=== PATIENT | male | born 1945 | race Caucasian/White ===

== ENCOUNTER 2018-11-07 09:48 | Inpatient (IN) | payer MEDICARE, OTHER ==
[~2018-11-07] VITALS: Ht 180.3 cm; Wt 81.6 kg
[2018-11-07] MEDS ORDERED: BAYER CHEWABLE81 MG PO (09:53)
[2018-11-07] MEDS ORDERED: LIPITOR40 MG PO (09:53)
[2018-11-07] MEDS ORDERED: THORAZINE50 MG PO (09:53)
[2018-11-07] MEDS ORDERED: FAMOTIDINE10 MG PO (09:54)
[2018-11-07] MEDS ORDERED: DEPAKOTE ER250 MG PO (09:54)
[2018-11-07] MEDS ORDERED: FERROUS SULFAT325 MG PO (09:54)
[2018-11-07] MEDS ORDERED: NOVOLOG100 UNIT/1 SC (09:55)
[2018-11-07] MEDS ORDERED: FLOMAX0.4 MG PO (09:55)
[2018-11-07] MEDS ORDERED: GLUCAGEN1 MG/VIAL SC (09:55)
[2018-11-07] MEDS ORDERED: INSTA-GLUCOSE31 GM PO (09:55)
[2018-11-07] MEDS ORDERED: NEURONTIN600 MG PO (09:56)
[2018-11-07] MEDS ORDERED: REMERON30 MG PO (09:56)
[2018-11-07] MEDS ORDERED: MELATONIN 3 MG1 TAB PO (09:56)
[2018-11-07] MEDS ORDERED: ISOSORBIDE MONO10 MG PO (09:56)
[2018-11-07] MEDS ORDERED: LANTUS INSULIN10 ML SC (09:56)
[2018-11-07] MEDS ORDERED: ULTRAM50 MG PO (09:57)
[2018-11-07] MEDS ORDERED: VITAMIN D31000 UNIT PO (09:57)
[2018-11-07 10:00] VITALS: BP 91/52
[2018-11-07 10:29] LABS: BASOPHILS 0.1 % (0-2); EOSINOPHILS 1.5 % (0-7); HEMATOCRIT 30.4 % (42.0-54.0); HEMOGLOBIN 9.4 g/dL (13.5-17.5); LYMPHOCYTES 16.3 % (15-50); MCH 28.1 pg (26.0-34.0); MCHC 30.9 g/dL (31.0-37.0); MEAN PLATELET VOLUME 9.3 fL (7.4-10.4); MONOCYTES 5.7 % (2-11); NEUTROPHILS 75.4 % (40-80); RBC 3.34 10x6/uL (4.20-6.10); RDW 14.9 % (11.5-14.5); WBC 12.6 10x3/uL (4.8-10.8)
[2018-11-07 10:34] LABS: PLATELET COUNT 360 10x3/uL (130-400)
[2018-11-07 10:37] LABS: ALBUMIN 2.7 g/dL (3.4-5.0); ALKALINE PHOSPHATASE 93 U/L (46-116); ALT (SGPT) 7 U/L (10-68); BILIRUBIN - TOTAL 0.19 mg/dL (0.2-1.3); CALC OSMOLALITY 287 mosm/kg (275-300); CALCIUM 8.3 mg/dL (8.5-10.1); CARBON DIOXIDE 31.6 mmol/L (21.0-32.0); CHLORIDE - SERUM 101 mmol/L (98-107); CREATININE - SERUM 3.7 mg/dL (0.6-1.3); POTASSIUM - SERUM 5.4 mmol/L (3.5-5.1); SODIUM 137 mmol/L (136-145); UREA NITROGEN 51 mg/dL (7-18); eGFR NON AFRICAN AMERICAN 17 mL/min (90-120)
[2018-11-07 10:39] LABS: GLUCOSE 102 mg/dL (74-106)
[2018-11-07 10:49] LABS: CREATINE KINASE 33 UL (21-232); PRO BNP 411 pg/mL (0-125); TROPONIN-I < 0.017 ng/mL (0.000-0.060)
--- NOTE | 2018-11-07 11:20 | NUR ---
PER EDP DOWNEN, REPEAT ABG ORDERED. RT AT BEDSIDE AT THIS TIME.
[2018-11-07 13:27] VITALS: BMI 25.1
--- NOTE | 2018-11-07 13:29 | MORECARE ---
CASE MANAGEMENT DISCHARGE SUMMARY PATIENT: ARIANNA JUAN UNIT: [id number] ADM DATE: 11/07/18 AGE: 72 : 46 SEX: M ROOM/BED: D.1208 AUTHOR: NANCY CRUMP PHYSICIAN: REFERRING PHYSICIAN: PHILOMENA PERALES MD DATE OF SERVICE: 11/07/18 Discharge Plan Patient Name: ARIANNA JUAN [facility] [facility] 1945 Planned Disposition: Group Home Facility Anticipated Discharge Date: 11/10/18 Discharge Date: Expected LOS: 3 Initial Reviewer: [email or web address] Initial Review Date: 11/07/2018 Generated: 11/07/18 2:28 pm DCPIA - Discharge Planning Initial Assessment Updated by [email or web address]: Nisha Wheatley on 11/07/18 1:25 pm * Is the patient Alert and Oriented? No * How many steps to enter\exit or inside your home? None * PCP Dr. Perales * Pharmacy [facility] * Preadmission Environment Nursing Home Jail * Facility Name [facility] ([facility]ally [facility]) * List name and contact numbers for known caregivers / representatives who currently or will assist patient after discharge: Bon Juan Andi ZUNIGA/SON - [phone] Javi Nguyen - daughter - [phone] * Verbal permission to speak to the caregivers and representatives has been obtained from the patient. N/A * Additional services required to return to the preadmission environment? No * Can the patient safely return to the preadmission environment? Yes * Has this patient been hospitalized within the prior 30 days at any hospital? No External Providers External Provider: [facility] Next Contact Date: Service Request Date: Service Type: Resolution: Reviewer: Comments: Patient Name: ARIANNA JUAN Page [phone] at 1329 All edits/amendments must be made on the electronic document DICTATION DATE: 11/07/18 1328 DITCHER OPERATOR: FARZANEH 11/07/18 1328 RPT#: [id number] DC DATE: STATUS: ADM IN [facility] [address] [facility] [place] [address] END OF REPORT
--- NOTE | 2018-11-07 13:34 | NUR ---
RECEIVED PT FROM ER. PT ADMITTED WITH PNEUMONIA, COPD, RENAL FAILURE. NO C/O PAIN. NO S/S OF ACUTE DISTRESS NOTED. IV TO RIGHT HAND, FINGER, NS INFUSING @ 75ML/HR. PT INCONTINENT OF BOWEL AND BLADDER. NKDA. PT ON 12L O2, HIGHFLOW NC. PT DENIES ANYTHING FURTHER AT THIS TIME. CALL LIGHT IN REACH. WILL CONTINUE TO MONITOR.
[2018-11-07 13:38] VITALS: BP 109/47
--- NOTE | 2018-11-07 14:12 | MORECARE ---
CASE MANAGEMENT DISCHARGE SUMMARY PATIENT: ARIANNA CANSECO UNIT: [id number] ADM DATE: 11/07/18 AGE: 72 : 46 SEX: M ROOM/BED: D.1208 AUTHOR: THERONDOC PHYSICIAN: REFERRING PHYSICIAN: PHILOMENA PERALES MD DATE OF SERVICE: 11/07/18 Discharge Plan Patient Name: ARIANNA CANSECO Facility: [facility]:[place] : 1945 Planned Disposition: Residential Facility Anticipated Discharge Date: 11/10/18 Discharge Date: Expected LOS: 3 Initial Reviewer: [email or web address] Initial Review Date: 11/07/2018 Generated: 11/07/18 3:12 pm DCP- Discharge Planning Updated by [email or web address]: Nisha Wheatley on 11/07/18 1:[address] Patient Name: ARIANNA CANSECO Admission Status: ER Accout number: [id number] Admission Date: 11-07-2018 : 1945 Admission Diagnosis: Attending: PHILOMENA PERALES Current LOS: 1 Anticipated DC Date: 11-10-2018 Planned Disposition: Residential Facility - [facility] Primary Insurance: MEDICARE A & B Discharge Planning Comments: CM met with patient to complete initial dc planning assessment. CM was unable to assess and educated patient on the CM role due to patient being on bipap and asleep. CM tried to contact both contacts listed on facesheet and received voicemails. Patient is a resident at [facility] (formally [facility] He will return to the facility at time of discharge. will continue to follow and will assist as needed with dc plans/needs. DCPIA - Discharge Planning Initial Assessment Updated by [id number]: Nisha Wheatley on 11/07/18 1:25 pm * Is the patient Alert and Oriented? No * How many steps to enter\exit or inside your home? None * PCP Dr. Perales * [facility]acy [facility] * Preadmission Environment C 13 Catapult Operator Long Term * Facility Name [facility] ([facility]) * List name and contact numbers for known caregivers / representatives who currently or will assist patient after discharge: BonRan ZUNIGA/YURIY - [phone] Javi Nguyen - daughter - [phone] * Verbal permission to speak to the caregivers and representatives has been obtained from the patient. N/A * Additional services required to return to the preadmission environment? No * Can the patient safely return to the preadmission environment? Yes * Has this patient been hospitalized within the prior 30 days at any hospital? No Last DP export: 11/07/18 12:28 p Patient Name: ARIANNA CANSECO Page [phone] at 1412 All edits/amendments must be made on the electronic document DICTATION DATE: 11/07/181411 SOCIAL SERVICES COORDINATOR: FARZANEH 11/07/181411 RPT#: [id number] DC DATE: STATUS: ADM IN [facility] [address] [place] [address] END OF REPORT
[2018-11-07 16:13] VITALS: BP 101/51
--- NOTE | 2018-11-07 18:44 | NUR ---
PT RESTING IN BED, EYES OPEN. NO C/O PAIN. NO S/S OF ACUTE DISTRESS NOTED. PT DENIES ANYTHING FURTHER AT THIS TIME. CALL LIGHT IN REACH. WILL CONTINUE TO MONITOR.
--- NOTE | 2018-11-07 19:49 | NUR ---
PATIENT RESTING IN BED WITH EYES OPEN. WATCHING TV. NO SIGNS OF DISTRESS. DENIES HAVING ANY PAIN OR NEEDS AT THIS TIME. BED IN LOWEST POSITION. SIDE RAILS UP. CALL LIGHT IN REACH. CONTINUE PLAN OF CARE.
[2018-11-07 20:00] VITALS: BP 156/84
[2018-11-08] VITALS (7 sets, daily range): BP systolic 120–160; BP diastolic 66–80; Ht 180.3 cm; Wt 81.6 kg
--- NOTE | 2018-11-08 04:00 | NUR ---
PATIENT RESTING IN BED WITH EYES CLOSED. NO SIGNS OF DISTRESS. BED IN LOWEST POSITION. SIDE RAILS UP. CALL LIGHT IN REACH. CONTINUE PLAN OF CARE.
[2018-11-08 07:50] LABS: CALC OSMOLALITY 298 mosm/kg (275-300); CALCIUM 7.6 mg/dL (8.5-10.1); CARBON DIOXIDE 29.7 mmol/L (21.0-32.0); CHLORIDE - SERUM 99 mmol/L (98-107); CREATININE - SERUM 2.9 mg/dL (0.6-1.3); MAGNESIUM - SERUM 2.2 mg/dL (1.8-2.4); POTASSIUM - SERUM 5.7 mmol/L (3.5-5.1); SODIUM 137 mmol/L (136-145); TROPONIN-I < 0.017 ng/mL (0.000-0.060); UREA NITROGEN 54 mg/dL (7-18); eGFR NON AFRICAN AMERICAN 23 mL/min (90-120)
[2018-11-08 07:52] LABS: GLUCOSE 276 mg/dL (74-106)
[2018-11-08 08:12] LABS: HEMATOCRIT 25.8 % (42.0-54.0); HEMOGLOBIN 8.2 g/dL (13.5-17.5); MCH 28.4 pg (26.0-34.0); MCHC 31.8 g/dL (31.0-37.0); MCV 89.3 fL (80.0-100.0); PLATELET COUNT 315 10x3/uL (130-400); RBC 2.89 10x6/uL (4.20-6.10); RDW 14.4 % (11.5-14.5); WBC 9.5 10x3/uL (4.8-10.8)
[2018-11-08 09:05] LABS: ANISOCYTOSIS OCC; LYMPHOCYTES 11 % (15-50); MONOCYTES 6 % (2-11); NEUTROPHILS 81 % (40-80); PLATELET ESTIMATE NORMAL
--- NOTE | 2018-11-08 09:30 | NUR ---
PT RESTING IN BED. PT HAD SPILT COFFEE ALL OVER HIS BED. ASSISTED PT WITH BEDBATH AND COMPLETE LINEN CHANGE. SHIFT ASSESSMENT PERFORMED. AM MEDS GIVEN ORDERED. PT TOLERATED WELL. SCD SLEEVES ON PT AT THIS TIME CALL LIGHT IN REACH. DENIES PAIN AT THIS TIME, DENIES ANY OTHER NEEDS AT THIS TIME
--- NOTE | 2018-11-08 13:07 | NUR ---
LEFT MESSAGE AT OFFICE THAT PT BLOOD CULTURE CAME BACK GRAM POSITIVE COCCI.
[2018-11-08 16:10] LABS: CREATININE - URINE 50.6 mg/dL (30-125); PRO/CRE RATIO URINE 1.2 mg/g; PROTEIN - URINE 62.9 mg/dL (0.0-11.9)
--- NOTE | 2018-11-08 19:30 | NUR ---
LYING IN BED. SOME PARANOIA NOTED. EASILY STARTLED WHEN STAFF APPROACHES PT. CONFUSED TO TIME AND SITUATION. RESP IRREG. BBS COARSE IN BLL. O2 @ 10L/HFC. MOUTH BREATHING MOST OF TIME. TALKATIVE WITH STAFF. DENIES PAIN. INCONT OF B/B. COMPLETE LINEN CHANGE DONE AT THIS TIME DUE TO URINARY INCONTINENCE. 1+ EDEMA TO BLE. SCDS IN USE BILAT. BRUISES NOTED TO BUE. NS @ 75 ML/HR INFUSING IN RT WRIST WITHOUT DIFF. SR ELEVATED X2. CL IN REACH. NO DISTRESS.
--- NOTE | 2018-11-09 00:20 | NUR ---
RESTING QUIETLY WITH EYES CLOSED. CPAP IN USE. CL IN REACH. NO DISTRESS.
[2018-11-09 03:58] VITALS: BP 132/74
[2018-11-09 05:53] LABS: BASOPHILS 0 % (0-2); EOSINOPHILS 0 % (0-7); HEMATOCRIT 25.1 % (42.0-54.0); HEMOGLOBIN 7.8 g/dL (13.5-17.5); IMMATURE GRANULOCYTES 0.5 % (0-5); LYMPHOCYTES 4.6 % (15-50); MCH 27.8 pg (26.0-34.0); MCHC 31.1 g/dL (31.0-37.0); MCV 89.3 fL (80.0-100.0); MEAN PLATELET VOLUME 9.2 fL (7.4-10.4); MONOCYTES 3.2 % (2-11); NEUTROPHILS 91.7 % (40-80); PLATELET COUNT 304 10x3/uL (130-400); RBC 2.81 10x6/uL (4.20-6.10); RDW 14.4 % (11.5-14.5); WBC 11.4 10x3/uL (4.8-10.8)
[2018-11-09 06:11] LABS: CALCIUM 7.6 mg/dL (8.5-10.1); CARBON DIOXIDE 30.1 mmol/L (21.0-32.0); CREATININE - SERUM 2.4 mg/dL (0.6-1.3)
[2018-11-09 06:13] LABS: POTASSIUM - SERUM 6.1 mmol/L (3.5-5.1)
[2018-11-09 07:30] VITALS: BP 128/66
--- NOTE | 2018-11-09 11:25 | NUR ---
RECIEVED 1 UNIT PRBC FROM LAB. VERIFIED WITH NGOC MARS AT BEDSIDE. VITALS WNL.
--- NOTE | 2018-11-09 11:55 | NUR ---
15 MIN POST VITALS WNL. WILL CONT TO MONITOR
--- NOTE | 2018-11-09 14:01 | NUR ---
1 U PRBC OBTAINED FROM LAB. VERIFIED WITH NGOC MARS AT PT BEDSIDE. VSS AND WNL. CURRENTLY TRANSFUSING WITHOUT COMPLICATIONS
--- NOTE | 2018-11-09 14:15 | NUR ---
POST 15MIN VITALS WNL. WILL CONT TO MONITOR
--- NOTE | 2018-11-09 21:15 | NUR ---
AWAKE,ALERT.NO COMPLAINTS VOICED AT PRESENT.RESP UNLABORED. O2 @ 10L PER HIGHFLOW.NO DISTRESS NOTED.CL IN REACH. SR UP X 2
[2018-11-09 21:49] VITALS: BP 138/74
[2018-11-10 00:15] VITALS: BP 153/77
--- NOTE | 2018-11-10 02:14 | NUR ---
I have reviewed this patient and I concur with the Shift Assessment completed by the Licensed Practical Nurse today this shift.
[2018-11-10 05:20] VITALS: BP 139/103
[2018-11-10 07:19] LABS: ANION GAP 12.1 mmol/L (8-16); BASOPHILS 0 % (0-2); CALCIUM 7.8 mg/dL (8.5-10.1); CARBON DIOXIDE 29.3 mmol/L (21.0-32.0); CREATININE - SERUM 2.3 mg/dL (0.6-1.3); EOSINOPHILS 0 % (0-7); IMMATURE GRANULOCYTES 1.6 % (0-5); LYMPHOCYTES 5.8 % (15-50); MCHC 31.5 g/dL (31.0-37.0); MCV 89.1 fL (80.0-100.0); MEAN PLATELET VOLUME 9.2 fL (7.4-10.4); MONOCYTES 4.5 % (2-11); NEUTROPHILS 88.1 % (40-80); PLATELET COUNT 275 10x3/uL (130-400); POTASSIUM - SERUM 5.4 mmol/L (3.5-5.1); RDW 14.5 % (11.5-14.5); WBC 9.6 10x3/uL (4.8-10.8)
[2018-11-10 07:21] LABS: HEMATOCRIT 30.2 % (42.0-54.0); HEMOGLOBIN 9.5 g/dL (13.5-17.5); RBC 3.39 10x6/uL (4.20-6.10)
[2018-11-10 08:02] VITALS: BP 139/73
--- NOTE | 2018-11-10 08:30 | NUR ---
PT RESTING IN BED, NOTICED THAT PTS BED WAS SATURATED. ASSISTED PT WITH BED BATH AND COMPLETE LINEN CHANGE. AM MEDS GIVEN ORDERED. SHIFT ASSESSMENET PERFORMED PT DENIES PAIN AT THIS TIME, DENIES ANY OTHER NEEDS AT THIS TIME, WILL CONT TO FOLLOW PLAN OF CARE
[2018-11-10 08:43] LABS: % SATURATION 26 % (15-55); IRON 60 ug/dl (35-150); TOTAL IRON BIND CAPACITY 226 ug/dl (260-445); UNSAT IRON BIND CAPACITY 166 ug/dl (150-375)
--- NOTE | 2018-11-10 13:20 | NUR ---
Nutrition Follow Up: Pt was asleep and no family present at the time of RD visit. Interview deferred at this time. Diet: Renal ADA [facility] Soft PO Intake: 100% meal avg BM: 11/08/18 Labs reviewed - Glucose, BUN, Cr, K+ elevated Meds noted including Solu Medrol Rec continue current renal ADA diet with INTERNATIONAL TRAVEL CONSULTANT recs for consistencies. RD following.
[2018-11-10 20:30] VITALS: BP 141/76
[2018-11-11 00:35] VITALS: BP 151/73
[2018-11-11 05:46] VITALS: BP 158/83
[2018-11-11 06:37] LABS: BASOPHILS 0 % (0-2); EOSINOPHILS 0 % (0-7); HEMATOCRIT 32.7 % (42.0-54.0); HEMOGLOBIN 10.3 g/dL (13.5-17.5); IMMATURE GRANULOCYTES 1.7 % (0-5); MCH 28.4 pg (26.0-34.0); MCHC 31.5 g/dL (31.0-37.0); MCV 90.1 fL (80.0-100.0); MEAN PLATELET VOLUME 9.4 fL (7.4-10.4); MONOCYTES 5.4 % (2-11); NEUTROPHILS 84.9 % (40-80); PLATELET COUNT 274 10x3/uL (130-400); RBC 3.63 10x6/uL (4.20-6.10); RDW 14.4 % (11.5-14.5); WBC 8.3 10x3/uL (4.8-10.8)
[2018-11-11 07:14] LABS: ANION GAP 9.7 mmol/L (8-16); CALCIUM 8.1 mg/dL (8.5-10.1); CARBON DIOXIDE 32.3 mmol/L (21.0-32.0); CREATININE - SERUM 2.2 mg/dL (0.6-1.3)
--- NOTE | 2018-11-11 08:00 | NUR ---
AWAKE AND ALERT. ORIENTED X3. NO C/O THIS AM. LUNGS ARE CLEAR BILATERALLY WITH FAINT CRACKLES IN BILATERAL LOWER LOBES. NO COUGH NOTED. SKIN IS INTACT WITHOUT REDNESS. SCD'S IN PLACE. IV TO RIGHT WRIST IS PATENT WITHOUT REDNESS AT INSERTION SITE. VPODED CLEAR YELLOW URINE IN URINAL. DENIES NEEDS.
[2018-11-11 08:17] LABS: FOLATE (FOLIC ACID) - SERUM 4.3 ng/mL (>3.0)
--- NOTE | 2018-11-11 09:00 | NUR ---
ATE ALL OF FIRST BREAKFAST TRAY AND REQUESTED ANOTHER. OBTAINED FOR PATIENT.
[2018-11-11 09:07] VITALS: BP 174/86
--- NOTE | 2018-11-11 12:30 | NUR ---
LUNCH SERVED IN ROOM. ATE ALL OF MEAL EXCEPT RICE. DENIES NEEDS.
[2018-11-11 13:50] VITALS: BP 176/86
--- NOTE | 2018-11-11 14:00 | NUR ---
HAD LARGE MEDIUM BROWN LOOSE STOOL USED BEDPAN. SKIN CARE PER STAFF. REPOSITIONED IN BED FOR COMFORT.
--- NOTE | 2018-11-11 15:00 | NUR ---
ARNOLDO NOTIFIED OF DR. PHILLIPS'S OK FOR DISCHARGE HOME FROM HIS STANDPOINT.
[2018-11-11 17:35] VITALS: BP 131/71
[2018-11-11 19:30] VITALS: BP 163/73
--- NOTE | 2018-11-11 20:06 | NUR ---
PATIENT RESTING IN BED WITH EYES CLOSED AND NO S/S OF DISTRESS. BED IN LOWEST POSITION AND CALL LIGHT WITHIN REACH. WILL CONTINUE TO MONITOR.
[2018-11-12] VITALS: BP 145/74
[2018-11-12 04:00] VITALS: BP 132/67
[2018-11-12 06:41] LABS: BASOPHILS 0 % (0-2); EOSINOPHILS 1.7 % (0-7); HEMATOCRIT 33.3 % (42.0-54.0); HEMOGLOBIN 10.7 g/dL (13.5-17.5); IMMATURE GRANULOCYTES 1.4 % (0-5); LYMPHOCYTES 27.7 % (15-50); MCH 28.5 pg (26.0-34.0); MCHC 32.1 g/dL (31.0-37.0); MCV 88.8 fL (80.0-100.0); MEAN PLATELET VOLUME 9.3 fL (7.4-10.4); MONOCYTES 9.3 % (2-11); NEUTROPHILS 59.9 % (40-80); PLATELET COUNT 258 10x3/uL (130-400); RBC 3.75 10x6/uL (4.20-6.10); RDW 14.3 % (11.5-14.5); WBC 8.6 10x3/uL (4.8-10.8)
[2018-11-12 07:06] LABS: ANION GAP 7.2 mmol/L (8-16); CALCIUM 8.1 mg/dL (8.5-10.1); CARBON DIOXIDE 34.1 mmol/L (21.0-32.0); CREATININE - SERUM 2.1 mg/dL (0.6-1.3); POTASSIUM - SERUM 4.3 mmol/L (3.5-5.1)
--- NOTE | 2018-11-12 07:50 | NUR ---
AWAKE AND ALERT. ORIENTED X3. NO C/O AT THIS TIME. LUNGS ARE CLEAR BILATERALLY, NO COUGH NOTED. O2 SITE AT 98% ON 5L HIGH FLOW, DECREASED TO 4L WILL MONITOR. SL TO RIGHT WRIST IS PATENT WITHOUT REDNESS AT INSERTION SITE. ATE ALL OF BREAKFAST. DENIES NEEDS.
[2018-11-12 08:00] VITALS: BP 144/91
--- NOTE | 2018-11-12 09:30 | NUR ---
REQUESTED AND GIVEN SECOND BREAKFAST. DENIES NEEDS.
[2018-11-12 12:00] VITALS: BP 155/89
[2018-11-12 16:22] VITALS: BP 109/70
--- NOTE | 2018-11-12 18:09 | NUR ---
ATE ALL OF SUPPER. NO C/O AT THIS TIME. DNEIES NEEDS. NO CHANGES NOTED.
--- NOTE | 2018-11-12 19:35 | NUR ---
PATIENT RESTING IN BED WITH EYES CLOSED AND NO S/S OF DISTRESS. BED IN LOWEST POSITION AND CALL LIGHT WITHIN REACH. WILL CONTINUE TO MONITOR.
[2018-11-12 19:38] VITALS: BP 128/66
[2018-11-13 00:43] VITALS: BP 130/72
[2018-11-13 04:24] VITALS: BP 132/63
[2018-11-13 06:57] LABS: BASOPHILS 0 % (0-2); EOSINOPHILS 0.8 % (0-7); HEMATOCRIT 35.2 % (42.0-54.0); HEMOGLOBIN 11.4 g/dL (13.5-17.5); IMMATURE GRANULOCYTES 1.3 % (0-5); LYMPHOCYTES 13.1 % (15-50); MCH 28.6 pg (26.0-34.0); MCHC 32.4 g/dL (31.0-37.0); MCV 88.4 fL (80.0-100.0); MEAN PLATELET VOLUME 9.5 fL (7.4-10.4); MONOCYTES 7.3 % (2-11); NEUTROPHILS 77.5 % (40-80); PLATELET COUNT 273 10x3/uL (130-400); RBC 3.98 10x6/uL (4.20-6.10); RDW 14.2 % (11.5-14.5)
[2018-11-13 07:05] LABS: ANION GAP 10.1 mmol/L (8-16); CALCIUM 8.3 mg/dL (8.5-10.1); CARBON DIOXIDE 32.5 mmol/L (21.0-32.0); CREATININE - SERUM 2.2 mg/dL (0.6-1.3); POTASSIUM - SERUM 4.6 mmol/L (3.5-5.1)
[2018-11-13 07:06] LABS: WBC 12.4 10x3/uL (4.8-10.8)
--- NOTE | 2018-11-13 08:00 | NUR ---
LYING IN BED WITH EYES CLOSED. AROUSES EASILY, DENIES ANY NEEDS OR PAIN AT THIS TIME. WILL CONTINUE TO MONITOR. O2 ON AT 4 L/NC.
[2018-11-13 09:07] VITALS: BP 141/65
[2018-11-13 09:09] LABS: IMMUNOGLOBULIN E 109 IU/mL (6-495)
[2018-11-13] MEDS ORDERED: VELTASSA8.4 GM PO (10:48)
[2018-11-13] MEDS ORDERED: IPRAT-ALBUT 0.5-3 ML UPD (10:48)
[2018-11-13] MEDS ORDERED: PREDNISONE20 MG PO (10:51)
--- NOTE | 2018-11-13 11:21 | MORECARE ---
CASE MANAGEMENT DISCHARGE SUMMARY PATIENT: ARIANNA JUAN UNIT: [id number] ADM DATE: 11/07/18 AGE: 72 : 46 SEX: M ROOM/BED: D.1208 AUTHOR: THERONDOC PHYSICIAN: REFERRING PHYSICIAN: PHILOMENA PERALES MD DATE OF SERVICE: 11/13/18 Discharge Plan Patient Name: ARIANNA JUAN Facility: [facility]:[place] : 1945 Planned Disposition: Residential Facility Anticipated Discharge Date: 11/10/18 Discharge Date: Expected LOS: 3 Initial Reviewer: [email or web address] Initial Review Date: 11/07/2018 Generated: 11/13/18 12:21 pm Comments DCP- Discharge Planning Updated by [id number]: Maria Isabel Sheets on 11/13/18 10:[address] 0945 PRIMARY NURSE ADVISED PATIENT IS FOR [facility]CHARGE BACK TO [facility] TC TO [facility] AND SPOKE WITH TI[facility]O. FAXED CLINICAL UPDATE. AWAIT CB REGARDING TRANSPORTATION AND BED STATUS. DCP- Discharge Planning Updated by [email or web address]: Nisha Wheatley on 11/07/18 1:[address] Patient Name: ARIANNA JUAN Admission Status: ER Accout number: [id number] Admission Date: 11-07-2018 : 1945 Admission Diagnosis: Attending: PHILOMENA PERALES Current LOS: 1 Anticipated DC Date: 11-10-2018 Planned Disposition: Residential Facility - [facility] Primary Insurance: MEDICARE A & B Discharge Planning Comments: CM met with patient to complete initial dc planning assessment. CM was unable to assess and educated patient on the CM role due to patient being on bipap and asleep. CM tried to contact both contacts listed on facesheet and received voicemails. Patient is a resident at [facility] (formally [facility]). He will return to the facility at time of discharge. will continue to follow and will assist as needed with dc plans/needs. DCPIA - Discharge Planning Initial Assessment Updated by [id number]: Nisha Wheatley on 11/07/18 1:25 pm * Is the patient Alert and Oriented? No * How many steps to enter\exit or inside your home? None * PCP Dr. Perales * Pharmacy [facility] * Preadmission Environment Workforce Development Specialist Snf * Facility Name [facility] (formally [facility]) * List name and contact numbers for known caregivers / representatives who currently or will assist patient after discharge: Bon Juan - POA/SON - [phone] Javi Nguyen - daughter - [phone] * Verbal permission to speak to the caregivers and representatives has been obtained from the patient. N/A * Additional services required to return to the preadmission environment? No * Can the patient safely return to the preadmission environment? Yes * Has this patient been hospitalized within the prior 30 days at any hospital? No Coverage Notice Reviewer: [email or web address] Andi Pineda Notice Issued Date-Time: 11/10/2018 10:52 Notice Type: IM Discharge Notice Notice Delivered To: Patient Relationship to Patient: Bonderite Operator Name: Delivery Method: HAND - Hand Delivered Alexus Days: Prior Verbal Notification: Recipient Understood Notice: Yes Recipient Signature: Med Rec Note Co-signed by Attending: Coverage Notice Comment: Last DP export: 11/07/18 1:12 p Patient Name: ARIANNA JUAN Page [phone] at 1121 All edits/amendments must be made on the electronic document DICTATION DATE: 11/13/18 112 CLINICAL EDUCATION COORDINATOR: FARZANEH 11/13/18 1120 RPT#: [id number] DC DATE: STATUS: ADM IN [facility] [address] [place] [address] END OF REPORT
--- NOTE | 2018-11-13 12:05 | MORECARE ---
CASE MANAGEMENT DISCHARGE SUMMARY PATIENT: ARIANNA JUAN UNIT: [id number] ADM DATE: 11/07/18 AGE: 72 : 46 SEX: M ROOM/BED: D.1208 AUTHOR: THERONDOC PHYSICIAN: REFERRING PHYSICIAN: PHILOMENA PERALES MD DATE OF SERVICE: 11/13/18 Discharge Plan Patient Name: ARIANNA JUAN Facility: [facility]:[place] : 1945 Planned Disposition: Custodial Facility Anticipated Discharge Date: 11/10/18 Discharge Date: Expected LOS: 3 Initial Reviewer: [email or web address] Initial Review Date: 11/07/2018 Generated: 11/13/18 1:05 pm Comments DCP- Discharge Planning Updated by [id number]: Maria Isabel Sheets on 11/13/18 10:[address] 0945 PRIMARY NURSE ADVISED PATIENT IS FOR [facility] TC TO [facility] AND SPOKE WITH TIAGO. FAXED CLINICAL UPDATE. AWAIT CB REGARDING TRANSPORTATION AND BED STATUS. DCP- Discharge Planning Updated by [email or web address]: Nisha Wheatley on 11/07/18 1:[address] Patient Name: ARIANNA JUAN Admission Status: ER Accout number: [id number] Admission Date: 11-07-2018 : 1945 Admission Diagnosis: Attending: PHILOMENA PERALES Current LOS: 1 Anticipated DC Date: 11-10-2018 Planned Disposition: Custodial Facility - [facility] Primary Insurance: MEDICARE A & B Discharge Planning Comments: CM met with patient to complete initial dc planning assessment. CM was unable to assess and educated patient on the CM role due to patient being on bipap and asleep. CM tried to contact both contacts listed on facesheet and received voicemails. Patient is a resident at [facility] (formally [facility]). He will return to the facility at time of discharge. will continue to follow and will assist as needed with dc plans/needs. DCPIA - Discharge Planning Initial Assessment Updated by [email or web address]: Nisha Wheatley on 11/07/18 1:25 pm * Is the patient Alert and Oriented? No * How many steps to enter\exit or inside your home? None * PCP Dr. Perales * Pharmacy [facility] * Preadmission Environment Group Home Skilled Nursing * Facility Name [facility] ([facility]ally [facility]) * List name and contact numbers for known caregivers / representatives who currently or will assist patient after discharge: Bon Juan - YUDITHA/SON - [phone] Javi Nguyen - daughter - [phone] * Verbal permission to speak to the caregivers and representatives has been obtained from the patient. N/A * Additional services required to return to the preadmission environment? No * Can the patient safely return to the preadmission environment? Yes * Has this patient been hospitalized within the prior 30 days at any hospital? No Coverage Notice Reviewer: [email or web address] Andi Pineda Notice Issued Date-Time: 11/10/2018 10:52 Notice Type: IM Discharge Notice Notice Delivered To: Patient Relationship to Patient: Tool Coordinator Name: Delivery Method: HAND - Hand Delivered Alexus Days: Prior Verbal Notification: Recipient Understood Notice: Yes Recipient Signature: Med Rec Note Co-signed by Attending: Coverage Notice Comment: Last DP export: 11/13/18 10:21 a Patient Name: ARIANNA JUAN Page [phone] at 1205 All edits/amendments must be made on the electronic document DICTATION DATE: 11/13/18 1204 GAS ENGINE PERFORMANCE ENGINEER: FARZANEH 11/13/18 1204 RPT#: [id number] DC DATE: STATUS: ADM IN [facility] [address] [place] [address] END OF REPORT
--- NOTE | 2018-11-13 12:13 | MORECARE ---
CASE MANAGEMENT DISCHARGE SUMMARY PATIENT: ARIANNA JUAN UNIT: [id number] ADM DATE: 11/07/18 AGE: 72 : 46 SEX: M ROOM/BED: D.1208 AUTHOR: NANCY CRUMP PHYSICIAN: REFERRING PHYSICIAN: PHILOMENA PERALES MD DATE OF SERVICE: 11/13/18 Discharge Plan Patient Name: ARIANNA JUAN Facility: [facility]:[place] : 1945 Planned Disposition: Nursing Home Facility Anticipated Discharge Date: 11/10/18 Discharge Date: Expected LOS: 3 Initial Reviewer: [email or web address] Initial Review Date: 11/07/2018 Generated: 11/13/18 1:13 pm Comments DCP- Discharge Planning Updated by [email or web address]: Maria Isabel Sheets on 11/13/18 11:[address] 1130 CM RECEIVED TELEPHONE CALL FROM [place] WITH [facility]. TRANSPORTATION WILL BE PROVIDED AT 1200. THE PATIENT IS DETENTION IN A [place] CONTRACTED BED. DISCHARGE IMM EXPLAINED. THE PATIENT SEEMED TO UNDERSTAND. HOWEVER HE SIGNED "OLYA". HE SAID "THAT IS FINE". HE REQUESTED ASSISTANCE TO GET DRESSED. CM ADVISED HIS PRIMARY NURSE, [place] AND THE BASIN OPERATOR. DCP- Discharge Planning Updated by [email or web address]: Maria Isabel Sheets on 11/13/18 10:[address] 0945 PRIMARY NURSE ADVISED PATIENT IS FOR DISCHARGE BACK TO [facility]. TC TO [facility] AND SPOKE WITH TIAGO. FAXED CLINICAL UPDATE. AWAIT CB REGARDING TRANSPORTATION AND BED STATUS. DCP- Discharge Planning Updated by [email or web address]: Nisha Wheatley on 11/07/18 1:[address] Patient Name: ARIANNA JUAN Admission Status: ER Accout number: [id number] Admission Date: 11-07-2018 : 1945 Admission Diagnosis: Attending: PHILOMENA PERALES Current LOS: 1 Anticipated DC Date: 11-10-2018 Planned Disposition: Nursing Home Facility - [facility] Primary Insurance: MEDICARE A & B Discharge Planning Comments: CM met with patient to complete initial dc planning assessment. CM was unable to assess and educated patient on the CM role due to patient being on bipap and asleep. CM tried to contact both contacts listed on facesheet and received voicemails. Patient is a resident at [facility] ([facility] He will return to the facility at time of discharge. will continue to follow and will assist as needed with dc plans/needs. DCPIA - Discharge Planning Initial Assessment Updated by [id number]: Nisha Wheatley on 11/07/18 1:25 pm * Is the patient Alert and Oriented? No * How many steps to enter\\exit or inside your home? None * PCP Dr. Perales * Pharmacy [facility] * Preadmission Environment Director Of Cardiology Long Term * Facility Name [facility] * List name and contact numbers for known caregivers / representatives who currently or will assist patient after discharge: Bon Juan Andi ZUNIGA/SON - [phone] Javi Nguyen - daughter - [phone] * Verbal permission to speak to the caregivers and representatives has been obtained from the patient. N/A * Additional services required to return to the preadmission environment? No * Can the patient safely return to the preadmission environment? Yes * Has this patient been hospitalized within the prior 30 days at any hospital? No Coverage Notice Reviewer: [email or web address] - Sofia Pineda Notice Issued Date-Time: 11/10/2018 10:52 Notice Type: IM Discharge Notice Notice Delivered To: Patient Relationship to Patient: Nuclear Medicine Tech Name: Delivery Method: HAND - Hand Delivered Alexus Days: Prior Verbal Notification: Recipient Understood Notice: Yes Recipient Signature: Med Rec Note Co-signed by Attending: Coverage Notice Comment: Reviewer: [email or web address] - Maria Isabel Sheets Notice Issued Date-Time: 11/13/2018 11:48 Notice Type: IM Discharge Notice Notice Delivered To: Patient Relationship to Patient: Self Nuclear Medicine Tech Name: Delivery Method: HAND - Hand Delivered Alexus Days: Prior Verbal Notification: Recipient Understood Notice: Yes Recipient Signature: Yes Med Rec Note Co-signed by Attending: Coverage Notice Comment: CM EXPLAINED DISCHARGE IMM. PATIENT SAID HE UNDERSTOOD. HOWEVER SIGNED THE COPY WITH JUST OLYA. D/C IMM SERVED. COPY TO THE PATIENT AND SIGNED COPY TO THE CHART. Last DP export: 11/13/18 11:05 a Patient Name: DIMITRIS JUANROSHAN Page [phone] at 1213 All edits/amendments must be made on the electronic document DICTATION DATE: 11/13/181211 DIRECTOR INFORMATION: FARZANEH 11/13/181211 RPT#: [id number] DC DATE: STATUS: ADM IN [facility] [address] [place] [address] END OF REPORT
--- NOTE | 2018-11-14 10:13 | MORECARE ---
CASE MANAGEMENT DISCHARGE SUMMARY PATIENT: ARIANNA JUAN UNIT: [id number] ADM DATE: 11/07/18 AGE: 72 : 47 SEX: M ROOM/BED: D.1208 AUTHOR: NANCY CRUMP PHYSICIAN: REFERRING PHYSICIAN: PHILOMENA PERALES MD DATE OF SERVICE: 11/14/18 Discharge Plan Patient Name: ARIANNA JUAN Facility: [facility]:[place] : 1945 Planned Disposition: Chcf Facility Anticipated Discharge Date: 11/10/18 Discharge Date: 11/13/2018 Expected LOS: 3 Initial Reviewer: [email or web address] Initial Review Date: 11/07/2018 Generated: 11/14/18 11:13 am Comments DCP- Discharge Planning Updated by [id number]: Maria Isabel Sheets on 11/13/18 11:[address] 1130 CM RECEIVED TELEPHONE CALL FROM TIAG[place] WITH [facility]. TRANSPORTATION WILL BE PROVIDED AT 1200. THE PATIENT IS [facility] IN A [place] CONTRACTED BED. DISCHARGE IMM EXPLAINED. THE PATIENT SEEMED TO UNDERSTAND. HOWEVER HE SIGNED "OLYA". HE SAID "THAT IS FINE". HE REQUESTED ASSISTANCE TO GET DRESSED. CM ADVISED HIS PRIMARY NURSE, [place] AND THE CUSTOMER RECORDS DIVISION SUPERVISOR. DCP- Discharge Planning Updated by [id number]: Maria Isabel Sheets on 11/13/18 10:[address] 0945 PRIMARY NURSE ADVISED PATIENT IS FOR DISCHARGE BACK TO [facility]. TC TO [facility] AND SPOKE WITH TIAGO. FAXED CLINICAL UPDATE. AWAIT CB REGARDING TRANSPORTATION AND BED STATUS. DCP- Discharge Planning Updated by [email or web address]: Nisha Wheatlye on 11/07/18 1:[address] Patient Name: ARIANNA JUAN Admission Status: ER Accout number: [id number] Admission Date: 11-07-2018 : 1945 Admission Diagnosis: Attending: PHILOMENA PERALES Current LOS: 1 Anticipated DC Date: 11-10-2018 Planned Disposition: Chcf Facility - [facility] Primary Insurance: MEDICARE A & B Discharge Planning Comments: CM met with patient to complete initial dc planning assessment. CM was unable to assess and educated patient on the CM role due to patient being on bipap and asleep. CM tried to contact both contacts listed on facesheet and received voicemails. Patient is a resident at [facility] (formally [facility] He will return to the facility at time of discharge. will continue to follow and will assist as needed with dc plans/needs. DCPIA - Discharge Planning Initial Assessment Updated by [id number]: Nisha Wheatley on 11/07/18 1:25 pm * Is the patient Alert and Oriented? No * How many steps to enter\\exit or inside your home? None * PCP Dr. Perales * Pharmacy [facility] * Preadmission Environment Longterm [facility] * Facility Name [facility] ([facility]) * List name and contact numbers for known caregivers / representatives who currently or will assist patient after discharge: Bon Juan Andi ZUNIGA/SON - [phone] Javi Nguyen - daughter - [phone] * Verbal permission to speak to the caregivers and representatives has been obtained from the patient. N/A * Additional services required to return to the preadmission environment? No * Can the patient safely return to the preadmission environment? Yes * Has this patient been hospitalized within the prior 30 days at any hospital? No Coverage Notice Reviewer: [id number] - Sofia Pineda Notice Issued Date-Time: 11/10/2018 10:52 Notice Type: IM Discharge Notice Notice Delivered To: Patient Relationship to Patient: Physical Science Technician Name: Delivery Method: HAND - Hand Delivered Alexus Days: Prior Verbal Notification: Recipient Understood Notice: Yes Recipient Signature: Med Rec Note Co-signed by Attending: Coverage Notice Comment: Reviewer: [id number] - Maria Isabel Sheets Notice Issued Date-Time: 11/13/2018 11:48 Notice Type: IM Discharge Notice Notice Delivered To: Patient Relationship to Patient: Self Physical Science Technician Name: Delivery Method: HAND - Hand Delivered Alexus Days: Prior Verbal Notification: Recipient Understood Notice: Yes Recipient Signature: Yes Med Rec Note Co-signed by Attending: Coverage Notice Comment: CM EXPLAINED DISCHARGE IMM. PATIENT SAID HE UNDERSTOOD. HOWEVER SIGNED THE COPY WITH JUST OLYA. D/C IMM SERVED. COPY TO THE PATIENT AND SIGNED COPY TO THE CHART. Last DP export: 11/13/18 11:13 a Patient Name: DUNNARIANNA ALBERT Page [id number] at 1013 All edits/amendments must be made on the electronic document DICTATION DATE: 11/14/18 1013 WATCH ASSEMBLY INSPECTOR: FARZANEH 11/14/18 1013 RPT#: [id number] DC DATE:11/13/18 STATUS: DIS IN [facility] [address] [facility] [place] [address] END OF REPORT
--- NOTE | 2018-11-14 10:23 | MORECARE ---
CASE MANAGEMENT DISCHARGE SUMMARY PATIENT: ARIANNA JUAN UNIT: [id number] ADM DATE: 11/07/18 AGE: 72 : 47 SEX: M ROOM/BED: D.1208 AUTHOR: NANCY CRUMP PHYSICIAN: REFERRING PHYSICIAN: PHILOMENA PERALES MD DATE OF SERVICE: 11/14/18 Discharge Plan Patient Name: ARIANNA UJAN Facility: [facility]:[place] : 1945 Planned Disposition: Residential Facility Anticipated Discharge Date: 11/10/18 Discharge Date: 11/13/2018 Expected LOS: 3 Initial Reviewer: [email or web address] Initial Review Date: 11/07/2018 Generated: 11/14/18 11:23 am Comments DCP- Discharge Planning Updated by [email or web address]: Maria Isabel Sheets on 11/13/18 11:[address] 1130 CM RECEIVED TELEPHONE CALL FROM TIAG[place] WITH [facility]. TRANSPORTATION WILL BE PROVIDED AT 1200. THE PATIENT [place] CONTRACTED BED. DISCHARGE IMM EXPLAINED. THE PATIENT SEEMED TO UNDERSTAND. HOWEVER HE SIGNED "OLYA". HE SAID "THAT IS FINE". HE REQUESTED ASSISTANCE TO GET DRESSED. CM ADVISED HIS PRIMARY NURSE, [place] AND THE DOOR PATCHER. DCP- Discharge Planning Updated by [id number]: Maria Isabel Sheets on 11/13/18 10:[address] 0945 PRIMARY NURSE ADVISED PATIENT IS FOR DISCHARGE BACK TO [facility]. TC TO [facility] AND SPOKE WITH TIAGO. FAXED CLINICAL UPDATE. AWAIT CB REGARDING TRANSPORTATION AND BED STATUS. DCP- Discharge Planning Updated by [email or web address]: Nisha Wheatley on 11/07/18 1:[address] Patient Name: ARIANNA JUAN Admission Status: ER Accout number: [id number] Admission Date: 11-07-2018 : 1945 Admission Diagnosis: Attending: PHILOMENA PERALES Current LOS: 1 Anticipated DC Date: 11-10-2018 Planned Disposition: Residential Facility - [facility] Primary Insurance: MEDICARE A & B Discharge Planning Comments: CM met with patient to complete initial dc planning assessment. CM was unable to assess and educated patient on the CM role due to patient being on bipap and asleep. CM tried to contact both contacts listed on facesheet and received voicemails. Patient is a resident at [facility] (formally [facility]). He will return to the facility at time of discharge. will continue to follow and will assist as needed with dc plans/needs. DCPIA - Discharge Planning Initial Assessment Updated by [id number]: Nisha Wheatley on 11/07/18 1:25 pm * Is the patient Alert and Oriented? No * How many steps to enter\\exit or inside your home? None * PCP Dr. Perales * Pharmacy [facility] * Preadmission Environment Long-Term [facility] * Facility Name [facility] ([facility]) * List name and contact numbers for known caregivers / representatives who currently or will assist patient after discharge: Bon Juan Andi ZUNIGA/SON - [phone] Javi Nguyen - daughter - [phone] * Verbal permission to speak to the caregivers and representatives has been obtained from the patient. N/A * Additional services required to return to the preadmission environment? No * Can the patient safely return to the preadmission environment? Yes * Has this patient been hospitalized within the prior 30 days at any hospital? No Coverage Notice Reviewer: [id number] - Sofia Pineda Notice Issued Date-Time: 11/10/2018 10:52 Notice Type: IM Discharge Notice Notice Delivered To: Patient Relationship to Patient: Pipe Foreman Name: Delivery Method: HAND - Hand Delivered Alexus Days: Prior Verbal Notification: Recipient Understood Notice: Yes Recipient Signature: Med Rec Note Co-signed by Attending: Coverage Notice Comment: Reviewer: [id number] - Maria Isabel Sheets Notice Issued Date-Time: 11/13/2018 11:48 Notice Type: IM Discharge Notice Notice Delivered To: Patient Relationship to Patient: Self Pipe Foreman Name: Delivery Method: HAND - Hand Delivered Alexus Days: Prior Verbal Notification: Recipient Understood Notice: Yes Recipient Signature: Yes Med Rec Note Co-signed by Attending: Coverage Notice Comment: CM EXPLAINED DISCHARGE IMM. PATIENT SAID HE UNDERSTOOD. HOWEVER SIGNED THE COPY WITH JUST OLYA. D/C IMM SERVED. COPY TO THE PATIENT AND SIGNED COPY TO THE CHART. Last DP export: 11/14/18 9:13 a Patient Name: DUNNARIANNA ALBERT Page [id number] at 1023 All edits/amendments must be made on the electronic document DICTATION DATE: 11/14/18 1022 PUBLIC RELATIONS COUNSELOR: FARZANEH 11/14/18 1022 RPT#: [id number] DC DATE:11/13/18 STATUS: DIS IN [facility] [address] [place] [address] END OF REPORT
== END 2018-11-13 14:13 | DRG 177 ==
LOC: D.ER 09:48 → D.EDHOLD 11:46 → D.M3 11:46
PROVIDERS: Emergency Medicine; Family Medicine; Internal Medicine; Internal Medicine Pulmonary Disease; ADMIT Legal Medicine; ATTEND Legal Medicine
DX: J15.6 Pneumonia due to other Gram-negative bacteria (principal); J96.02 Acute respiratory failure with hypercapnia; J96.01 Acute respiratory failure with hypoxia; J44.0 Chronic obstructive pulmonary disease with (acute) lower respiratory infection; J98.11 Atelectasis; J44.1 Chronic obstructive pulmonary disease with (acute) exacerbation; F31.30 Bipolar disorder, current episode depressed, mild or moderate severity, unspecified; N17.9 Acute kidney failure, unspecified; N18.4 Chronic kidney disease, stage 4 (severe); G47.33 Obstructive sleep apnea (adult) (pediatric); K21.9 Gastro-esophageal reflux disease without esophagitis; F20.9 Schizophrenia, unspecified; N40.0 Benign prostatic hyperplasia without lower urinary tract symptoms; Z66 Do not resuscitate; E11.22 Type 2 diabetes mellitus with diabetic chronic kidney disease; I12.9 Hypertensive chronic kidney disease with stage 1 through stage 4 chronic kidney disease, or unspecified chronic kidney disease; D50.9 Iron deficiency anemia, unspecified; E87.5 Hyperkalemia; Z72.0 Tobacco use